=== PATIENT | male | born 1980 | race Caucasian/White ===

== ENCOUNTER 2023-10-30 11:46 | Emergency (ER) | payer OTHER ==
[~2023-10-30] VITALS: Ht 180.3 cm; Wt 92.0 kg
[2023-10-30 11:48] VITALS: O2SAT 99
[2023-10-30 13:26] VITALS: BP 143/87; PULSE 86; RESP 16; TEMP 98.8
== END 2023-10-30 13:31 | disposition home or self-care (01) ==
LOC: ER 11:46
DX: S01.01XD Laceration without foreign body of scalp, subsequent encounter (principal); Z48.02 Encounter for removal of sutures; X58.XXXD Exposure to other specified factors, subsequent encounter
CPT/HCPCS: 99281

== ENCOUNTER 2024-07-13 12:38 | Emergency (ER) | payer MEDICAID ==
[~2024-07-13] VITALS: Ht 180.3 cm; Wt 82.0 kg
[2024-07-13 12:41] VITALS: O2SAT 98
[2024-07-13 12:55] VITALS: BP 119/62; PULSE 92; RESP 16; TEMP 98.5; O2SAT 100
[2024-07-13 13:57] LABS: BASOPHILS % 0.7 % (0.0-2.0); EOSINOPHILS % 1.7 % (0.0-5.0); HEMATOCRIT. 42.3 % (42.0-52.0); HEMOGLOBIN. 14.4 g/dL (14.0-18.0); LYMPHOCYTES % 26.1 % (20.0-50.0); MEAN CORPUSCULAR HEMOGLOBIN 32.6 pg (28.0-32.0); MEAN PLATELET VOLUME 8.1 fl (7.4-10.4); MONOCYTES % 6.1 % (2.0-8.0); NEUTROPHILS % 65.4 % (40.0-76.0); PLATELET 360 x1000/uL (130-400); RED BLOOD CELL COUNT 4.41 mill/uL (4.7-6.1); RED CELL DISTRIBUTION WIDTH 13.9 % (11.6-14.6); WHITE BLOOD COUNT 6.8 x1000/uL (4.5-11.0)
[2024-07-13 14:17] LABS: CHLORIDE 105 mEq/L (98-107)
[2024-07-13 14:18] LABS: CARBON DIOXIDE 27 mEq/L (21-32); POTASSIUM 4.1 mEq/L (3.5-5.1); SODIUM 138 mEq/L (136-145)
[2024-07-13 14:19] LABS: CALCIUM 9.4 mg/dL (8.7-10.4)
[2024-07-13 14:23] LABS: CREATININE 0.7 mg/dL (0.6-1.3); GLUCOSE 112 mg/dL (70-105)
[2024-07-13 14:24] LABS: UREA NITROGEN BLOOD 10 mg/dL (9-23)
[2024-07-13 14:25] LABS: ALANINE AMINOTRANSFERASE 24 IU/L (10-49); ALBUMIN 4.4 g/dL (3.2-4.8); ASPARTATE AMINOTRANSFERASE 26 IU/L (<34)
[2024-07-13 14:26] LABS: BILIRUBIN TOTAL 0.3 mg/dL (0.1-1.0); PROTEIN TOTAL 7.7 g/dL (6.0-8.3)
[2024-07-13 14:33] LABS: BILIRUBIN DIRECT < 0.1 mg/dL (<=3.0)
[2024-07-13] MEDS: KETOROLAC 30MG/ML VIAL IV ONE (14:44)
[2024-07-13 14:55] LABS: CLARITY URINE CLEAR (CLEAR); COLOR URINE YELLOW (YELLOW); GLUCOSE URINE NEGATIVE (NEGATIVE); KETONES URINE NEGATIVE (NEGATIVE); LEUKOCYTE ESTERASE URINE NEGATIVE (NEGATIVE); NITRITE URINE NEGATIVE (NEGATIVE); OCCULT BLOOD URINE NEGATIVE (NEGATIVE); PROTEIN URINE NEGATIVE (NEGATIVE); SPECIFIC GRAVITY URINE 1.003 (1.005-1.030); UROBILINOGEN URINE 0.2 E.U./dL (0.2-1.0)
[2024-07-13] MEDS: IOHEXOL-300 100 ML BOTTLE ONE (15:26)
[2024-07-13] MEDS ORDERED: IOHEXOL-300 100 ML BOTTLE ONE (23:38)
== END 2024-07-13 16:05 | disposition home or self-care (01) ==
LOC: ER 12:38
DX: R10.32 Left lower quadrant pain (principal)
CPT/HCPCS: 80076; 80048; 81003; 83690; 85025; 36415; 74177; 96374; 99285; Q9967; J1885; Z7610

== ENCOUNTER 2024-08-21 15:55 | Emergency (ER) | payer MEDICAID ==
[2024-08-21] MEDS ORDERED: HYDROCODONE/ACETAMINOPHEN 5/325MG TABLET PO ONE (16:15)
[2024-08-21] MEDS: HYDROCODONE/ACETAMINOPHEN 5/325MG TABLET PO NR (17:27)
[2024-08-21] MEDS ORDERED: LIDO700A15 TP (18:38)
[2024-08-21] MEDS ORDERED: NAPR-1176 MT (18:38)
[2024-08-21] MEDS: KETOROLAC 15MG/ML VIAL IM ONE (18:42)
[2024-08-21 19:22] VITALS: BP 138/61; PULSE 82; RESP 17; O2SAT 98
== END 2024-08-21 19:31 | disposition home or self-care (01) ==
LOC: ER 15:55
DX: S01.01XA Laceration without foreign body of scalp, initial encounter (principal); S16.1XXA Strain of muscle, fascia and tendon at neck level, initial encounter; F17.200 Nicotine dependence, unspecified, uncomplicated; V19.9XXA Pedal cyclist (driver) (passenger) injured in unspecified traffic accident, initial encounter; Y93.55 Activity, bike riding; Y92.89 Other specified places as the place of occurrence of the external cause; Y99.8 Other external cause status
CPT/HCPCS: 70450; 72125; 12002; 96372; 99285; J1885; Z7610

== ENCOUNTER 2025-02-09 07:54 | Emergency (ER) | payer MEDICAID ==
[~2025-02-09] VITALS: Ht 180.3 cm; Wt 82.0 kg
[~2025-02-09 07:54] MED LIST: LIDO-53 TP; NAPR-1176 MT
[2025-02-09 07:57] VITALS: O2SAT 99
[2025-02-09] MEDS: ACETAMINOPHEN 500MG TABLET PO ONE (08:42)
[2025-02-09 10:13] VITALS: BP 127/71; PULSE 70; RESP 12; TEMP 37.1; O2SAT 97
== END 2025-02-09 10:26 | disposition home or self-care (01) ==
LOC: ER 07:54
DX: R51.9 Headache, unspecified (principal); I10 Essential (primary) hypertension; Z79.1 Long term (current) use of non-steroidal anti-inflammatories (NSAID); Z79.899 Other long term (current) drug therapy
CPT/HCPCS: 99284